=== PATIENT | male | born 1995 | race Caucasian/White ===

== ENCOUNTER 2017-01-25 21:02 | Emergency (ER) | payer OTHER | END 2017-01-25 22:16 | disposition home or self-care (01) | LOC: FER 21:02 | DX: J20.9 Acute bronchitis, unspecified (principal); F17.210 Nicotine dependence, cigarettes, uncomplicated; Z88.0 Allergy status to penicillin | CPT/HCPCS: 87804; 87899; 94640 ==

== ENCOUNTER 2017-04-29 01:07 | Emergency (ER) | payer OTHER | END 2017-04-29 03:09 | disposition home or self-care (01) | LOC: FER 01:07 | DX: S63.501A Unspecified sprain of right wrist, initial encounter (principal); F17.200 Nicotine dependence, unspecified, uncomplicated | CPT/HCPCS: 73110; 99283 ==

== ENCOUNTER 2017-07-29 17:30 | Emergency (ER) | payer OTHER | END 2017-07-29 20:18 | disposition home or self-care (01) | LOC: FER 17:30 | DX: L02.01 Cutaneous abscess of face (principal); R06.2 Wheezing; F17.210 Nicotine dependence, cigarettes, uncomplicated | CPT/HCPCS: 99283 ==